=== PATIENT | female | born 1970 | race Two or more races ===

== ENCOUNTER 2018-11-26 21:22 | Emergency (ER) | payer SELFPAY ==
[~2018-11-26] VITALS: Ht 160 cm; Wt 93.0 kg
[2018-11-26 21:39] VITALS: BP 127/74
[2018-11-26] MEDS ORDERED: HYDROCODONE/ACETAMINOPHEN 5/325MG TABLET PO ONE (23:15)
== END 2018-11-27 01:06 | disposition home or self-care (01) ==
LOC: ER 21:40
DX: I83.92 Asymptomatic varicose veins of left lower extremity (principal); R60.0 Localized edema; F17.200 Nicotine dependence, unspecified, uncomplicated; Z98.890 Other specified postprocedural states
CPT/HCPCS: 93971; 99284